=== PATIENT | female | born 1995 | race Caucasian/White ===

== ENCOUNTER 2018-06-17 20:35 | Observation (INO) | payer MEDICAID ==
[~2018-06-17] VITALS: Ht 149.9 cm; Wt 79.4 kg
[2018-06-17] MEDS ORDERED: PREN-96 PO (21:07)
[2018-06-17] MEDS ORDERED: PRO625LQ PO (21:07)
[2018-06-17] MEDS ORDERED: FER325T PO (21:07)
== END 2018-06-17 23:05 | disposition home or self-care (01) | DRG 566 ==
LOC: LDRP 20:35
PROVIDERS: ADMIT Obstetrics & Gynecology; ATTEND Obstetrics & Gynecology
DX: O26.892 Other specified pregnancy related conditions, second trimester (principal); R10.9 Unspecified abdominal pain; Z3A.22 22 weeks gestation of pregnancy
CPT/HCPCS: 59025; 76815; 81002; G0378